=== PATIENT | female | born 1975 | race American Indian/Alaskan Native ===

== ENCOUNTER 2016-09-13 19:37 | Emergency (ER) | payer OTHER ==
[2016-09-13] MEDS ORDERED: NORCO 5/325 PO ONE (20:15)
--- NOTE | 2016-09-13 21:12 | XRay Report ---
FINAL REPORT PROCEDURE: XR HAND 3+V LT TECHNIQUE: Left hand, three views HISTORY: left hand injury, FALL COMPARISON: No prior studies are available for comparison. FINDINGS: There is a comminuted displaced fracture of the distal radial epiphysis, with angulation. The distal fracture fragment articulates with the carpus. The radial shaft is displaced anteriorly by half a bone width. No other fracture or dislocation is seen. IMPRESSION: Acute comminuted fracture of the distal radius
--- NOTE | 2016-09-13 21:24 | XRay Report ---
FINAL REPORT PROCEDURE: XR FOREARM LT TECHNIQUE: Left forearm, two views HISTORY: left forearm injury, FALL COMPARISON: No prior studies are available for comparison. FINDINGS: There is an acute comminuted fracture of the distal radius, with displacement and angulation at the fracture site. Proximal radius and ulna appear intact. IMPRESSION: Acute comminuted fracture of the distal radius
[2016-09-13] MEDS ORDERED: DILAUDID IV ONE (21:31)
[2016-09-13] MEDS ORDERED: ZOFRAN IV ONE (21:31)
[2016-09-13 22:02] VITALS: BP 133/97
--- NOTE | 2016-09-13 22:59 | Emergency Department Report ---
HPI - General Chief Complaint: Extremity Injury, Upper Time Seen by Provider: 09/13/16 21:20 - HPI HPI: Left wrist pain 40-year-old -[place] female, states she slipped and fell on left wrist. Complaining of severe pain in the formation of the left wrist. Able to wiggle fingers have, states pain is 10 out of 10 sharp. Patient didn't take any medicine for her pain. Denies any alleviating or exacerbating factors. ED Past Medical Hx - Past Medical History Previous Medical History?: Yes Hx Headaches / Migraines: Yes - Surgical History Past Surgical History?: Yes Additional Surgical History: hysterectomy - Social History Smoking Status: Never Smoker Substance Use Type: Alcohol - Medications Home Medications: Home Medications Medication Instructions Recorded Confirmed Last Taken Type HYDROcodone/APAP 5-325 [[place] 1 each PO Q6HR PRN #15 tablet 09/13/16 Unknown Rx 5/325] Ketorolac [Toradol] 10 mg PO Q6H PRN #20 tablet 09/13/16 Unknown Rx ED Review of Systems ROS: Stated complaint: LEFT WRIST INJURY Other details as noted in HPI Comment: All other systems reviewed and negative Constitutional: no symptoms reported Musculoskeletal: joint swelling, myalgia Physical Exam - Physical Exam Vital Signs: Vital Signs 09/13/16 09/13/16 09/13/16 20:05 22:00 22:01 Temperature 97.9 F 98 F Pulse Rate 101 H 98 H Respiratory 16 18 18 Rate Blood Pressure 135/88 Blood Pressure 133/97 [Left] O2 Sat by Pulse 97 98 Oximetry 09/13/16 22:03 Temperature Pulse Rate Respiratory 18 Rate Blood Pressure Blood Pressure [Left] O2 Sat by Pulse Oximetry Physical Exam: Gen. alert and oriented 3 in no distress Head atraumatic normocephalic Eyes PERR LA EOMI Chest regular rate and rhythm normal S1-S2 lungs clear bilaterally Abdomen soft nondistended Back no point tenderness paravertebral tenderness Neuro no focal deficit. Psych normal mood. Extremity left wrist tender to palpation, mild displacement. ED Course Vital Signs 09/13/16 09/13/16 09/13/16 20:05 22:00 22:01 Temperature 97.9 F 98 F Pulse Rate 101 H 98 H Respiratory 16 18 18 Rate Blood Pressure 135/88 Blood Pressure 133/97 [Left] O2 Sat by Pulse 97 98 Oximetry 09/13/16 22:03 Temperature Pulse Rate Respiratory 18 Rate Blood Pressure Blood Pressure [Left] O2 Sat by Pulse Oximetry - Procedure Description Procedures done: Left wrist radius fracture reduction, after Dilaudid IV given gentle traction placed on the medial aspect of left wrist, with gentle reduction of the fracture. Splint placed patient able to move fingers neurovascularly intact. Critical care attestation.: If time is entered above; I have spent that time in minutes in the direct care of this critically ill patient, excluding procedure time. ED Disposition Clinical Impression: Radius distal fracture Disposition: TO HOME OR SELFCARE Is pt being admited?: No Does the pt Need Aspirin: No Condition: Stable Instructions: Wrist Fracture in Adults (ED) Prescriptions: HYDROcodone/APAP 5-325 [[place] 5/325] 1 each PO Q6HR PRN #15 tablet PRN Reason: Pain Ketorolac [Toradol] 10 mg PO Q6H PRN #20 tablet PRN Reason: Pain Referrals: PRIMARY CAREMD [Primary Care Provider] - 3-5 Days MELO MICHAUD MD [Staff Physician] - 3-5 Days
== END 2016-09-13 23:18 | disposition home or self-care (01) ==
LOC: ED 19:37
DX: S52.502A Unspecified fracture of the lower end of left radius, initial encounter for closed fracture (principal); W18.30XA Fall on same level, unspecified, initial encounter; Y93.9 Activity, unspecified; Y92.9 Unspecified place or not applicable; Y99.9 Unspecified external cause status
CPT/HCPCS: 25605; 73090; 73130; 96374; 96375; 99284; J1170; J2405